=== PATIENT | female | born 1960 | race Caucasian/White ===

== ENCOUNTER 2017-10-27 09:56 | Emergency (ER) | payer MEDICAID ==
[~2017-10-27] VITALS: Ht 162.6 cm; Wt 72.6 kg
[~2017-10-27 09:56] MED LIST: AZITHROMYCIN 2250 MG PO; CLONAZEPAM 0.50.5 M1 PO; FLEXERIL PO; KLONOPIN1 MG PO; LISINOPRIL5 MG PO; MONTELUKAST SOD10 MG PO; PROVENTIL HFA6.7 G1; TRAMADOL 50 MG50 MG PO; ULTRAM 50MG TAB50 MG PO; ZOFRAN ODT4 MG PO
[2017-10-27 10:07] VITALS: BP 160/90
[2017-10-27] MEDS ORDERED: MOBIC7.5 MG PO (10:07)
[2017-10-27] MEDS ORDERED: AMARYL4 MG PO (10:08)
[2017-10-27] MEDS ORDERED: VALIUM5 MG PO (10:08)
[2017-10-27] MEDS ORDERED: ZOCOR20 MG PO (10:11)
[2017-10-27] MEDS ORDERED: HYDROCHLOROTH12.5 M1 PO (10:11)
[2017-10-27] MEDS ORDERED: PROTONIX40 M1 PO (10:11)
[2017-10-27] MEDS ORDERED: ARIPIPRAZOLE2 MG PO (10:11)
[2017-10-27] MEDS ORDERED: ZYPREXA2.5 MG PO (10:12)
[2017-10-27] MEDS ORDERED: ZOFRAN ODT4 MG DISSOLVE (10:13)
[2017-10-27] MEDS ORDERED: NEURONTIN 300300 M1 PO (10:13)
[2017-10-27] MEDS ORDERED: FLEXERIL PO (10:22)
[2017-10-27] MEDS ORDERED: TRAMADOL 50 MG50 MG PO (10:22)
== END 2017-10-27 10:32 | disposition home or self-care (01) ==
LOC: M.ERS 09:56
DX: M25.512 Pain in left shoulder (principal); F41.9 Anxiety disorder, unspecified; F31.9 Bipolar disorder, unspecified; G89.29 Other chronic pain; E11.9 Type 2 diabetes mellitus without complications; Z88.0 Allergy status to penicillin